=== PATIENT | male | born 1945 | race Caucasian/White ===

== ENCOUNTER → 2021-04-04 09:15 | Outpatient (CLI) | payer MEDICARE, OTHER, SELFPAY ==
[2021-04-04 19:52] LABS: Bacteria Urine None Seen
[2021-04-04 20:00] LABS: Appearance Urine UA CLEAR; Bilirubin Urine UA NEGATIVE (NEGATIVE); Color Urine UA YELLOW; Glucose Urine UA NEGATIVE (Negative); Ketones Urine UA NEGATIVE (NEGATIVE); Leukocyte Esterase Urine UA NEGATIVE (NEGATIVE); Nitrite Urine UA NEGATIVE (Negative); Occult Blood Urine UA NEGATIVE (Negative); Protein Urine UA 2+ (Negative); Urobilinogen Urine UA 0.2 E.U./dL (0.2)
[2021-04-04 20:10] LABS: Add Manual Diff / Slide Review NO; Basophils Absolute Auto 0 /uL (0-100); Basophils Percent Auto 0.2 % (0-2); Eosinophils Absolute Auto 200 /uL (0-450); Eosinophils Percent Auto 2.9 % (2-4); Hematocrit 36.7 % (41-53); Hemoglobin 12.1 g/dL (13.5-17.5); Lymphocytes Absolute Auto 1500 /uL (1100-4500); Lymphocytes Percent Auto 24.2 % (25-40); Mean Corpuscular Hemoglobin 28.7 PG (26-34); Mean Corpuscular Volume 86.9 fL (80-100); Monocytes Absolute Auto 500 /uL (0-900); Monocytes Percent Auto 8.6 % (3-14); Neutrophils Absolute Auto 3900 /uL (1500-7000); Neutrophils Percent Auto 64.1 % (50-75); Platelet Count 251 X10^3/uL (150-400); Red Blood Cell Count 4.22 X10^6/uL (4.5-5.9); Red Cell Distribution Width 15.4 % (11.6-14.8)
[2021-04-04 20:31] LABS: Culture Indicated Urine Cult Not Indicated
[2021-04-04 20:32] LABS: Hyaline Casts Urine 1-5/LPF; RBC Urine 1-5/HPF (0-5/HPF); WBC Urine 1-5/HPF (0-5/HPF)
[2021-04-04 20:44] LABS: Albumin 3.6 g/dL (3.5-5.0); BUN Creatinine Ratio 15.6 (6-22); Blood Urea Nitrogen 36 mg/dL (9-20); C-Reactive Protein Quant 0.9 mg/dL (<1.0); Calcium 9.9 mg/dL (8.4-10.2); Carbon Dioxide 26 mmol/L (22-32); Chloride 108 mmol/L (98-107); Cholesterol 212 mg/dL (140-199); Creatinine Urine Random 97.1 mg/dL; Erythrocyte Sedimentation Rate 40 MM/HR (0-15); Estimated Glomerular Filt Rate 27.5 mL/min (>60); Glucose 103 mg/dL (80-110); HDL Cholesterol 39 mg/dL (40-60); HEMOLYSIS < 15 (0-50); LDL Cholesterol Calculated 129 mg/dL (<100); Magnesium 2.3 mg/dL (1.6-2.3); Phosphorous 3.3 mg/dL (2.3-3.7); Potassium 3.9 mmol/L (3.4-5.1); Protein (Total) Urine Random 90 mg/dL (0-12); Protein Creatinine Ratio Urine 0.92 GRAM/24H; Sodium 141 mmol/L (137-145); Triglycerides 218 mg/dL (35-150)
[2021-04-06 06:09] LABS: Parathyroid Hormone Int 118 pg/mL (15-65)
== END ==
PROVIDERS: PCP Family Medicine
DX: N18.4 Chronic kidney disease, stage 4 (severe)
CPT/HCPCS: 80061; 80069; 81001; 82570; 83735; 83970; 84156; 85025; 85651; 86140

== ENCOUNTER 2024-12-16 21:14 | Emergency (ER) | payer MEDICARE, OTHER, SELFPAY ==
[2024-12-16] VITALS (7 sets, daily range): BP systolic 126–152; BP diastolic 63–76; PULSE 72–76; RESP 17–30; TEMP 36.1; O2SAT 90–93; BMI 37.3
--- NOTE | 2024-12-16 21:28 | EKG_ITS ---
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
[2024-12-16 22:17] LABS: Add Manual Diff / Slide Review NO; Basophils Absolute Auto 0 /uL (0-100); Basophils Percent Auto 0.2 % (0-2); Eosinophils Absolute Auto 200 /uL (0-450); Eosinophils Percent Auto 1.9 % (2-4); Hematocrit 21.5 % (41-53); Hemoglobin 7.2 g/dL (13.5-17.5); Lymphocytes Absolute Auto 600 /uL (1100-4500); Mean Corpuscular HGB Conc 33.4 % (30-36); Mean Corpuscular Hemoglobin 31.8 PG (26-34); Mean Corpuscular Volume 95.3 fL (80-100); Monocytes Absolute Auto 800 /uL (0-900); Monocytes Percent Auto 6.7 % (3-14); Neutrophils Absolute Auto 9700 /uL (1500-7000); Neutrophils Percent Auto 86.2 % (50-75); Platelet Count 123 X10^3/uL (150-400); Red Blood Cell Count 2.26 X10^6/uL (4.5-5.9); Red Cell Distribution Width 16.7 % (11.6-14.8); White Blood Cell Count 11.3 X10^3/uL (4.5-11.0)
[2024-12-16 22:25] LABS: Prothrombin Time 11.6 SECONDS (9.4-12.5)
[2024-12-16 22:27] LABS: PTT Partial Thromboplastin Tim 20 SECONDS (25.1-36.5)
[2024-12-16 22:29] LABS: Alanine Aminotransferase 62 IU/L (<50); Albumin 3.3 g/dL (3.5-5.0); Albumin Globulin Ratio 1.3 (1.0-2.8); Alkaline Phosphatase 93 U/L (38-126); Aspartate Aminotransferase 45 IU/L (17-59); BUN Creatinine Ratio 10.6 (6-22); Bilirubin Total 0.8 mg/dL (0.2-1.3); Blood Urea Nitrogen 104 mg/dL (9-20); Calcium 9.3 mg/dL (8.4-10.2); Carbon Dioxide 30 mmol/L (22-32); Chloride 98 mmol/L (98-107); Estimated Glomerular Filt Rate 5 mL/min (>60); Globulin 2.6 g/dL (1.7-4.1); Glucose 130 mg/dL (80-110); HEMOLYSIS 21 (0-50); Potassium 4.8 mmol/L (3.4-5.1); Sodium 137 mmol/L (137-145); Total Protein 5.9 g/dL (6.3-8.2)
[2024-12-17] VITALS (28 sets, daily range): BP systolic 131–165; BP diastolic 70–96; PULSE 72–107; RESP 18–38; TEMP 36.6–36.8; O2SAT 91–99
--- NOTE | 2024-12-17 03:20 | ED_ITS ---
HPI - Recheck/Abnormal Lab/Rx <Kandice Alvarez, DO - Last Filed: 12/18/24 02:41> General Chief Complaint: Recheck/Abnormal Lab/Rx Stated Complaint: abnormal labs Time Seen by Provider: 12/16/24 23:33 Source: EMS Mode of arrival: EMS Limitations: no limitations History of Present Illness HPI narrative: 79-year-old male stage IV cancer lung cancer diagnosed in July, end-stage renal disease nightly home peritoneal dialysis last dialysis was 12/15/2024 patient was brought over from [facility] for anemia with goal of transfusion. Patient states he had lab draw showed his hemoglobin was low I also spoke with his who states he had a hemoglobin of 6.5 last check was 8 and they were contacted by the oncologist and told to come for blood transfusion. Patient has had blood transfusion in the past. Patient's states he had his dialysis he on the , they do not have any of his supplies. Patient not complaining of any acute chest pain, shortness of breath, significant swelling, lightheadedness or passing out. No known drug allergies. Related Data Home Medications Medication Instructions Recorded Confirmed Benadryl 12/16/24 Mucinex 12/16/24 Tums 12/16/24 Tylenol 12/16/24 Vitamin D3 12/16/24 adagrasib 200 mg tablet (Krazati) 600 mg PO BID 12/16/24 12/16/24 amlodipine 10 mg tablet 5 mg PO BEDTIME 12/16/24 12/16/24 apixaban 2.5 mg tablet (Eliquis) 2.5 mg PO BID 12/16/24 12/16/24 azelastine 137 mcg (0.1 %) nasal 2 spray intranasal BID 12/16/24 12/16/24 spray carvedilol 12.5 mg tablet 12.5 mg PO BID 12/16/24 12/16/24 dexamethasone 1 mg tablet 1 mg PO BID 12/16/24 12/16/24 docusate sodium 100 mg capsule 100 mg PO BID PRN Constipation 12/16/24 12/16/24 fluticasone propionate 50 2 spray intranasal DAILY 12/16/24 12/16/24 mcg/actuation nasal spray,suspension hydrocortisone 1 % topical cream 1 applic topical BID PRN Itching 12/16/24 12/16/24 levothyroxine 25 mcg tablet 25 mcg PO DAILY 12/16/24 12/16/24 loratadine 10 mg tablet (Claritin) 10 mg PO BID 12/16/24 12/16/24 methylprednisolone 4 mg tablet 4 mg PO DAILY 12/16/24 12/16/24 ondansetron 4 mg disintegrating 4 mg PO Q6H PRN Nausea 12/16/24 12/16/24 tablet oxycodone-acetaminophen 5 mg-325 1 tab PO Q4-6H PRN Pain, Severe 12/16/24 12/16/24 mg tablet polyethylene glycol 3350 17 17 g PO DAILY 12/16/24 12/16/24 gram/dose oral powder (Miralax) prochlorperazine maleate 10 mg 10 mg PO DAILY 12/16/24 12/16/24 tablet (Compazine) sevelamer carbonate 0.8 gram oral g PO 12/16/24 powder packet torsemide 20 mg tablet 20 mg PO DAILY 12/16/24 12/16/24 vitamins A,C,A-ulfa-viipft 2,148 tab 12/16/24 mcg-113 mg-45 mg-17.4 mg tablet (PreserVision AREDS) Allergies Allergy/AdvReac Type Severity Reaction Status Date / Time No Known Drug Allergies Allergy Verified 12/16/24 21:38 Review of Systems <Kandice Alvarez DO - Last Filed: 12/18/24 02:41> Review of Systems ROS Unobtainable: All systems reviewed & are unremarkable except as noted in HPI and below Exam <Kandice Alvarez DO - Last Filed: 12/18/24 02:41> Narrative Exam Narrative: GENERAL: Alert and oriented x three, male in mild distress, pale. HEENT: Head normocephalic, atraumatic, EOMI, pupils reactive, face symmetric, moist mucous membranes NECK: Supple, full range of motion CARDIOVASCULAR: Regular rate and rhythm without murmurs, rubs or gallops. RESPIRATORY: Breath sounds equal bilaterally, no wheezes rales or rhonchi. ABDOMEN: Soft, nontender. Normoactive bowel sounds all 4 quadrants. No guarding or rebound, rigidity, no mass : No CVA tenderness EXTREMITIES: Normal range of motion, no clubbing or edema. Neurovascularly intact NEUROLOGICAL: Cranial nerves II through XII grossly intact. Moving all extremities SKIN: Warm, dry, no petechiae, no rashes or lesions. Initial Vital Signs Initial Vital Signs: Vital Signs Temperature 96.9 F L 12/16/24 21:21 Pulse Rate 72 12/16/24 21:21 Respiratory Rate 20 12/16/24 21:21 Blood Pressure 152/68 H 12/16/24 21:21 Pulse Oximetry 93 12/16/24 21:21 Oxygen Delivery Method Room Air 12/16/24 21:21 <Maritza Felix, DO - Last Filed: 12/17/24 18:42> Initial Vital Signs Initial Vital Signs: Vital Signs Temperature 96.9 F L 12/16/24 21:21 Pulse Rate 72 12/16/24 21:21 Respiratory Rate 20 12/16/24 21:21 Blood Pressure 152/68 H 12/16/24 21:21 Pulse Oximetry 93 12/16/24 21:21 Oxygen Delivery Method Room Air 12/16/24 21:21 Course <Kandice Alvarez, DO - Last Filed: 12/18/24 02:41> Orders Ordered: Discontinued Medications Acetaminophen (Acetaminophen 325 Mg Tablet) 650 mg PO NOW ONE Stop: 12/17/24 06:10 Last Admin: 12/17/24 06:17 Dose: 650 mg Documented By: AB Carvedilol (Carvedilol 12.5 Mg Tablet) 12.5 mg PO NOW ONE Stop: 12/17/24 09:21 Last Admin: 12/17/24 09:37 Dose: 12.5 mg Documented By: MINOO Dexamethasone (Dexamethasone 1 Mg Tablet) 1 mg PO NOW ONE Stop: 12/17/24 05:29 Last Admin: 12/17/24 05:44 Dose: 1 mg Documented By: AB Diphenhydramine HCl (Diphenhydramine 25 Mg Tablet) 50 mg PO NOW ONE Stop: 12/17/24 06:10 Last Admin: 12/17/24 06:17 Dose: 50 mg Documented By: AB Ondansetron HCl (Ondansetron 4 Mg/2 Ml Inj) 4 mg IV NOW PRN PRN Reason: Nausea And Vomiting Ondansetron HCl (Ondansetron 4 Mg Odt) 4 mg SL NOW PRN PRN Reason: Nausea And Vomiting Last Admin: 12/17/24 05:44 Dose: 4 mg Documented By: Torsemide (Torsemide 10 Mg Tablet) 20 mg PO NOW ONE Stop: 12/17/24 06:12 Last Admin: 12/17/24 06:38 Dose: 20 mg Documented By: Vital Signs Vital signs: Vital Signs - 8 hr 12/17/24 01:30 12/17/24 01:30 12/17/24 02:00 Temperature Pulse Rate 86 Respiratory Rate 25 H Blood Pressure 139/72 145/75 H Pulse Oximetry 94 Oxygen Delivery Method 12/17/24 02:00 12/17/24 02:30 12/17/24 02:30 Temperature Pulse Rate 74 74 Respiratory Rate 24 20 Blood Pressure 147/72 H Pulse Oximetry 99 Oxygen Delivery Method Room Air 12/17/24 03:00 12/17/24 03:31 12/17/24 04:00 Temperature Pulse Rate 75 81 Respiratory Rate 18 Blood Pressure 132/73 Pulse Oximetry 91 Oxygen Delivery Method Room Air 12/17/24 04:00 12/17/24 04:30 12/17/24 04:48 Temperature 98.3 F Pulse Rate 73 73 74 Respiratory Rate 22 19 18 Blood Pressure 132/73 Pulse Oximetry 94 94 Oxygen Delivery Method 12/17/24 05:00 12/17/24 05:06 12/17/24 05:06 Temperature Pulse Rate 72 73 Respiratory Rate 20 21 Blood Pressure 141/71 H Pulse Oximetry 93 94 Oxygen Delivery Method Room Air 12/17/24 05:07 12/17/24 05:30 12/17/24 05:30 Temperature 97.9 F Pulse Rate 73 74 Respiratory Rate 20 22 Blood Pressure 141/71 H 155/76 H Pulse Oximetry 92 Oxygen Delivery Method Room Air 12/17/24 06:00 12/17/24 06:00 12/17/24 06:24 Temperature Pulse Rate 75 Respiratory Rate 23 Blood Pressure 143/96 H 156/78 H Pulse Oximetry 95 Oxygen Delivery Method 12/17/24 06:24 12/17/24 06:30 12/17/24 06:30 Temperature Pulse Rate 75 74 Respiratory Rate 19 Blood Pressure 149/77 H Pulse Oximetry 92 94 Oxygen Delivery Method 12/17/24 07:00 12/17/24 07:00 12/17/24 07:30 Temperature Pulse Rate 76 75 Respiratory Rate Blood Pressure 134/75 Pulse Oximetry 93 92 Oxygen Delivery Method Room Air 12/17/24 07:31 12/17/24 07:31 12/17/24 07:59 Temperature Pulse Rate 75 Respiratory Rate Blood Pressure 149/70 H 165/80 H Pulse Oximetry 93 Oxygen Delivery Method 12/17/24 07:59 12/17/24 08:00 12/17/24 08:00 Temperature Pulse Rate 82 76 Respiratory Rate Blood Pressure 156/83 H Pulse Oximetry 92 92 Oxygen Delivery Method Room Air Room Air <Maritza Felix, DO - Last Filed: 12/17/24 18:42> Orders Ordered: Discontinued Medications Acetaminophen (Acetaminophen 325 Mg Tablet) 650 mg PO NOW ONE Stop: 12/17/24 06:10 Last Admin: 12/17/24 06:17 Dose: 650 mg Documented By: AB Carvedilol (Carvedilol 12.5 Mg Tablet) 12.5 mg PO NOW ONE Stop: 12/17/24 09:21 Last Admin: 12/17/24 09:37 Dose: 12.5 mg Documented By: MINOO Dexamethasone (Dexamethasone 1 Mg Tablet) 1 mg PO NOW ONE Stop: 12/17/24 05:29 Last Admin: 12/17/24 05:44 Dose: 1 mg Documented By: AB Diphenhydramine HCl (Diphenhydramine 25 Mg Tablet) 50 mg PO NOW ONE Stop: 12/17/24 06:10 Last Admin: 12/17/24 06:17 Dose: 50 mg Documented By: Ondansetron HCl (Ondansetron 4 Mg/2 Ml Inj) 4 mg IV NOW PRN PRN Reason: Nausea And Vomiting Ondansetron HCl (Ondansetron 4 Mg Odt) 4 mg SL NOW PRN PRN Reason: Nausea And Vomiting Last Admin: 12/17/24 05:44 Dose: 4 mg Documented By: AB Torsemide (Torsemide 10 Mg Tablet) 20 mg PO NOW ONE Stop: 12/17/24 06:12 Last Admin: 12/17/24 06:38 Dose: 20 mg Documented By: AB Vital Signs Vital signs: Vital Signs - 8 hr 12/17/24 01:30 12/17/24 01:30 12/17/24 02:00 Temperature Pulse Rate 86 Respiratory Rate 25 H Blood Pressure 139/72 145/75 H Pulse Oximetry 94 Oxygen Delivery Method 12/17/24 02:00 12/17/24 02:30 12/17/24 02:30 Temperature Pulse Rate 74 74 Respiratory Rate 24 20 Blood Pressure 147/72 H Pulse Oximetry 99 Oxygen Delivery Method Room Air 12/17/24 03:00 12/17/24 03:31 12/17/24 04:00 Temperature Pulse Rate 75 81 Respiratory Rate 18 Blood Pressure 132/73 Pulse Oximetry 91 Oxygen Delivery Method Room Air 12/17/24 04:00 12/17/24 04:30 12/17/24 04:48 Temperature 98.3 F Pulse Rate 73 73 74 Respiratory Rate 22 19 18 Blood Pressure 132/73 Pulse Oximetry 94 94 Oxygen Delivery Method 12/17/24 05:00 12/17/24 05:06 12/17/24 05:06 Temperature Pulse Rate 72 73 Respiratory Rate 20 21 Blood Pressure 141/71 H Pulse Oximetry 93 94 Oxygen Delivery Method Room Air 12/17/24 05:07 12/17/24 05:30 12/17/24 05:30 Temperature 97.9 F Pulse Rate 73 74 Respiratory Rate 20 22 Blood Pressure 141/71 H 155/76 H Pulse Oximetry 92 Oxygen Delivery Method Room Air 12/17/24 06:00 12/17/24 06:00 12/17/24 06:24 Temperature Pulse Rate 75 Respiratory Rate 23 Blood Pressure 143/96 H 156/78 H Pulse Oximetry 95 Oxygen Delivery Method 12/17/24 06:24 12/17/24 06:30 12/17/24 06:30 Temperature Pulse Rate 75 74 Respiratory Rate 19 Blood Pressure 149/77 H Pulse Oximetry 92 94 Oxygen Delivery Method 12/17/24 07:00 12/17/24 07:00 12/17/24 07:30 Temperature Pulse Rate 76 75 Respiratory Rate Blood Pressure 134/75 Pulse Oximetry 93 92 Oxygen Delivery Method Room Air 12/17/24 07:31 12/17/24 07:31 12/17/24 07:59 Temperature Pulse Rate 75 Respiratory Rate Blood Pressure 149/70 H 165/80 H Pulse Oximetry 93 Oxygen Delivery Method 12/17/24 07:59 12/17/24 08:00 12/17/24 08:00 Temperature Pulse Rate 82 76 Respiratory Rate Blood Pressure 156/83 H Pulse Oximetry 92 92 Oxygen Delivery Method Room Air Room Air MDM - Recheck/Abnormal Lab/Rx <Kandice Alvarez DO - Last Filed: 12/18/24 02:41> Lab Data 12/16/24 22:00 12/16/24 22:00 Labs: Lab Results 12/16/24 12/17/24 Range/Units 22:00 03:30 WBC 11.3 H (4.5-11.0) X10^3/uL RBC 2.26 L (4.5-5.9) X10^6/uL Hgb 7.2 L (13.5-17.5) g/dL Hct 21.5 L (41-53) % MCV 95.3 (80-100) fL MCH 31.8 (26-34) PG MCHC 33.4 (30-36) % RDW 16.7 H (11.6-14.8) % Plt Count 123 L (150-400) X10^3/uL Neut % (Auto) 86.2 H (50-75) % Lymph % (Auto) 5.0 L (25-40) % [place] % (Auto) 6.7 (3-14) % Eos % (Auto) 1.9 L (2-4) % Baso % (Auto) 0.2 (0-2) % Neut # (Auto) 9700 H (3607-1721) /uL Lymph # (Auto) 600 L (1142-4250) /uL [place] # (Auto) 800 (0-900) /uL Eos # (Auto) 200 (0-450) /uL Baso # (Auto) 0 (0-100) /uL PT 11.6 (9.4-12.5) SECONDS INR 1.0 (0.9-1.3) APTT 20 L (25.1-36.5) SECONDS Sodium 137 (137-145) mmol/L Potassium 4.8 (3.4-5.1) mmol/L Chloride 98 (98-107) mmol/L Carbon Dioxide 30 (22-32) mmol/L BUN 104 H (9-20) mg/dL Creatinine 9.83 H* (0.66-1.25) mg/dL Estimated GFR 5 L (>60) mL/min BUN/Creatinine Ratio 10.6 (6-22) Glucose 130 H (80-110) mg/dL Calcium 9.3 (8.4-10.2) mg/dL Total Bilirubin 0.8 (0.2-1.3) mg/dL AST 45 (17-59) IU/L ALT 62 H (<50) IU/L Alkaline Phosphatase 93 (38-126) U/L Total Protein 5.9 L (6.3-8.2) g/dL Albumin 3.3 L (3.5-5.0) g/dL Globulin 2.6 (1.7-4.1) g/dL Albumin/Globulin Ratio 1.3 (1.0-2.8) Ur Bilirubin Confirm Negative (Negative) Urine RBC 0-1/hpf (0-5/HPF) Urine WBC None seen (0-5/HPF) Ur Squamous Epith Cells 0-1 /hpf (0-5/HPF) Urine Bacteria None seen (None) Ur Culture Indicated? Cult not indicated Vol Urine Centrifuged 10ml (spun) Blood Type A Positive Antibody Screen Negative Crossmatch See Detail Urine Dip Bedside Urine Glucose Negative Bedside Urine Bilirubin + 1 Bedside Urine Ketone - Negative Urine Specific [place] 1.010 Bedside Urine Occult Blood +++ Bedside Urine pH 7.0 Bedside Urine Protein + 30 Bedside Urine Urobilinogen - Negative Bedside Urine Nitrite - Negative Bedside Urine Leukocytes - Negative Esterase ECG Data Attestation: I personally reviewed and interpreted this ECG as follows: Prior ECG tracings: not available for review Interpretation: Sinus rhythm rate of 74 [place] 188 QRS of 96 QTC of 457. No acute ST changes. No priors for comparison. MDM Narrative Medical decision making narrative: Labs show white count 11.3 hemoglobin of 7.2 platelets of 123 patient does not have any priors for comparison accept for 2020 when hemoglobin was 12.1 patient's creatinine is 9.83 sodium is 137 potassium 4.8 chloride 98 CO2 of 30 BUN of 104 glucose of 130. Calcium is 9.3 ALT 62 but AST is 45 with a normal bilirubin and alk-phos. INR of 1. Patient's vitals patient has not had any persistent tachycardia or hypotension. Discussed blood transfusion patient meets criteria with a hemoglobin of 7.2 he does not have any tachycardia or hypotension he is a peritoneal dialysis, Last dialysis was 12/15/24 has not have dialysis in last 24 hours. He is high-risk for fluid overload. He was transferred here from [facility] by air ambulance but we do not have Nephrology available. Spoke with patient and his he was full code. We will reach out to his oncologist to see if he was tolerated this well in the past discussed with the patient and both he does meet criteria for blood would likely benefit but we have little bit of time to sort out the safest way for him to receive this. [id number] Fuentes patient's oncologist through [facility] he is familiar with the patient does not see him a lot [id number] [place] has had 1 prior blood transfusion Saturday without any difficulties. He states patient was hemoglobin of 6 he does recommend that he receives 1 unit packed red cells we discussed risks versus benefits if patient becomes fluid overloaded we do not have capabilities to dialyze the patient he does not understand this and feel patient would likely tolerate this okay and that we did discuss risks with patient and their family. [id number] I spoke with the patient and his discussed patient is high-risk for fluid overload he does make a little bit of urine but has not had peritoneal dialysis tonight and could ultimately end up intubated from fluid overload but they are agreeable to transfusion at this time states he has had 1 prior transfusion at Saturday without issue. Both patient and are aware that it is very difficult to transfer currently sometimes taking 48+ hours. Patient receiving blood complaining of his usual joint pain give a dose of Tylenol. Patient normally takes Benadryl daily as well as loratadine so was given a dose of Benadryl orally. We will also give patient's home torsemide dose. Signed out to Dr. Felix while receiving blood. Dr. Felix-patient signed out to me by Dr. Alvarez. Patient chronic kidney disease on peritoneal dialysis has not had peritoneal dialysis for at least 24 hours, creatinine today 9.8, BUN 1 0 Previously on November 11 creatinine 7.86 BUN 68 He is currently receiving 1 unit packed red blood cells still makes urine. Seems to be a confused [id number] DR. Garcia, nephrology at updated on patient's test results symptoms states that patient can go home and resume peritoneal dialysis no changes need to be made Discussion with and patient and daughter at bedside goals of care pulsed form. For now he continues to be full code getting help and other devices and things home. <Maritza Felix, DO - Last Filed: 12/17/24 18:42> Lab Data Labs: Lab Results 12/16/24 12/17/24 Range/Units 22:00 03:30 WBC 11.3 H (4.5-11.0) X10^3/uL RBC 2.26 L (4.5-5.9) X10^6/uL Hgb 7.2 L (13.5-17.5) g/dL Hct 21.5 L (41-53) % MCV 95.3 (80-100) fL MCH 31.8 (26-34) PG MCHC 33.4 (30-36) % RDW 16.7 H (11.6-14.8) % Plt Count 123 L (150-400) X10^3/uL Neut % (Auto) 86.2 H (50-75) % Lymph % (Auto) 5.0 L (25-40) % [place] % (Auto) 6.7 (3-14) % Eos % (Auto) 1.9 L (2-4) % Baso % (Auto) 0.2 (0-2) % Neut # (Auto) 9700 H (5111-9097) /uL Lymph # (Auto) 600 L (5650-2713) /uL [place] # (Auto) 800 (0-900) /uL Eos # (Auto) 200 (0-450) /uL Baso # (Auto) 0 (0-100) /uL PT 11.6 (9.4-12.5) SECONDS INR 1.0 (0.9-1.3) APTT 20 L (25.1-36.5) SECONDS Sodium 137 (137-145) mmol/L Potassium 4.8 (3.4-5.1) mmol/L Chloride 98 (98-107) mmol/L Carbon Dioxide 30 (22-32) mmol/L BUN 104 H (9-20) mg/dL Creatinine 9.83 H* (0.66-1.25) mg/dL Estimated GFR 5 L (>60) mL/min BUN/Creatinine Ratio 10.6 (6-22) Glucose 130 H (80-110) mg/dL Calcium 9.3 (8.4-10.2) mg/dL Total Bilirubin 0.8 (0.2-1.3) mg/dL AST 45 (17-59) IU/L ALT 62 H (<50) IU/L Alkaline Phosphatase 93 (38-126) U/L Total Protein 5.9 L (6.3-8.2) g/dL Albumin 3.3 L (3.5-5.0) g/dL Globulin 2.6 (1.7-4.1) g/dL Albumin/Globulin Ratio 1.3 (1.0-2.8) Ur Bilirubin Confirm Negative (Negative) Urine RBC 0-1/hpf (0-5/HPF) Urine WBC None seen (0-5/HPF) Ur Squamous Epith Cells 0-1 /hpf (0-5/HPF) Urine Bacteria None seen (None) Ur Culture Indicated? Cult not indicated Vol Urine Centrifuged 10ml (spun) Blood Type A Positive Antibody Screen Negative Crossmatch See Detail Urine Dip Bedside Urine Glucose Negative Bedside Urine Bilirubin + 1 Bedside Urine Ketone - Negative Urine Specific [place] 1.010 Bedside Urine Occult Blood +++ Bedside Urine pH 7.0 Bedside Urine Protein + 30 Bedside Urine Urobilinogen - Negative Bedside Urine Nitrite - Negative Bedside Urine Leukocytes - Negative Esterase MDM Narrative Medical decision making narrative: Labs show white count 11.3 hemoglobin of 7.2 platelets of 123 patient does not have any priors for comparison accept for 2020 when hemoglobin was 12.1 patient's creatinine is 9.83 sodium is 137 potassium 4.8 chloride 98 CO2 of 30 BUN of 104 glucose of 130. Calcium is 9.3 ALT 62 but AST is 45 with a normal bilirubin and alk-phos. INR of 1. Patient's vitals patient has not had any persistent tachycardia or hypotension. Discussed blood transfusion patient meets criteria with a hemoglobin of 7.2 he does not have any tachycardia or hypotension he is a peritoneal dialysis, Last dialysis was 12/15/24 has not have dialysis in last 24 hours. He is high-risk for fluid overload. He was transferred here from [facility] by air ambulance but we do not have Nephrology available. Spoke with patient and his he was full code. We will reach out to his oncologist to see if he was tolerated this well in the past discussed with the patient and both he does meet criteria for blood would likely benefit but we have little bit of time to sort out the safest way for him to receive this. [id number] Fuentes patient's oncologist through [facility] he is familiar with the patient does not see him a lot [id number] [place] 1 prior blood transfusion [place] without any difficulties. He states patient was hemoglobin of 6 he does recommend that he receives 1 unit packed red cells we discussed risks versus benefits if patient becomes fluid overloaded we do not have capabilities to dialyze the patient he does not understand this and feel patient would likely tolerate this okay and that we did discuss risks with patient and their family. [id number] I spoke with the patient and his discussed patient is high-risk for fluid overload he does make a little bit of urine but has not had peritoneal dialysis tonight and could ultimately end up intubated from fluid overload but they are agreeable to transfusion at this time states he has had 1 prior transfusion at [place] without issue. Both patient and are aware that it is very difficult to transfer currently sometimes taking 48+ hours. Patient receiving blood complaining of his usual joint pain give a dose of Tylenol. Patient normally takes Benadryl daily as well as loratadine so was given a dose of Benadryl orally. We will also give patient's home torsemide dose. Signed out to Dr. Felix. Dr. Felix-patient signed out to me by Dr. Alvarez. Patient chronic kidney disease on peritoneal dialysis has not had peritoneal dialysis for at least 24 hours, creatinine today 9.8, BUN 1 0 Previously on November 11 creatinine 7.86 BUN 68 He is currently receiving 1 unit packed red blood cells still makes urine. Seems to be a confused [id number] DR. Garcia, nephrology at updated on patient's test results symptoms states that patient can go home and resume peritoneal dialysis no changes need to be made Discussion with and patient and daughter at bedside goals of care pulsed form. For now he continues to be full code getting help and other devices and things home. Discharge Plan Departure Patient Disposition: Home Clinical Impression: Anemia, Requires peritoneal dialysis Activity Restrictions/Additional Instructions: *You have been diagnosed with anemia *What to do: At this time please resume your peritoneal dialysis start as soon as you get home. Follow-up with Oncology, discuss if eliquis is needed while anemic *Continue to take medications as directed *Follow up with your primary care provider in 2-3 days or call [phone] *Return to ER if you should have chest pain shortness of breath weakness confusion or any new, worsening or concerning symptoms Prescriptions: No Action torsemide 20 mg Tablet 20 mg PO DAILY dexamethasone 1 mg tablet 1 mg PO BID Rx Instructions: 3 pm and 3 am amlodipine 10 mg Tablet 5 mg PO BEDTIME Eliquis 2.5 mg tablet 2.5 mg PO BID prochlorperazine maleate [Compazine] 10 mg Tablet 10 mg PO DAILY levothyroxine 25 mcg Tablet 25 mcg PO DAILY oxycodone-acetaminophen 5-325 mg Tablet 1 tab PO Q4-6H PRN (Reason: Pain, Severe) sevelamer carbonate 0.8 gram powder in packet PO Krazati 200 mg tablet 600 mg PO BID hydrocortisone 1 % Cream 1 applic TOPICAL BID PRN (Reason: Itching) azelastine 137 mcg (0.1 %) [place],Non-Aerosol 2 spray INTRANASAL BID Rx Instructions: administer into each nostril fluticasone propionate 50 mcg/actuation [place],Suspension 2 spray INTRANASAL DAILY Rx Instructions: administer into each nostril ondansetron 4 mg Tablet,Disintegrating 4 mg PO Q6H PRN (Reason: Nausea) Mucinex methylprednisolone [Methylprednisone] 4 mg Tablet 4 mg PO DAILY docusate sodium 100 mg Capsule 100 mg PO BID PRN (Reason: Constipation) polyethylene glycol 3350 [Miralax] 17 gram/dose Powder 17 g PO DAILY PreserVision AREDS 2,148 mcg-113 mg-45 mg-17.4mg Tablet Vitamin D3 Benadryl Tums Tylenol carvedilol 12.5 mg Tablet 12.5 mg PO BID Rx Instructions: must administer with a meal/food loratadine [Claritin] 10 mg Tablet 10 mg PO BID Referrals: Rj Landa MD [Primary Care Provider] - Stand Alone Forms: Patient Portal/API/Survey
[2024-12-17 04:00] LABS: Bacteria Urine None Seen; Culture Indicated Urine Cult Not Indicated; Ictotest Urine Negative (Negative); RBC Urine 0-1/HPF (0-5/HPF); Squamous Epithelial Cell Urine 0-1 /HPF (0-5/HPF); Urine Volume 10mL (spun); WBC Urine None Seen (0-5/HPF)
--- NOTE | 2024-12-17 05:14 | PC.NURSE ---
Transfusion started and pt tolerating well.
[2024-12-17] MEDS: dexAMETHasone 1 MG TABLET PO (05:44)
[2024-12-17] MEDS: ONDANSETRON 4 MG ODT SL (05:44)
[2024-12-17] MEDS: diphenhydrAMINE 25 MG TABLET 50 MG PO (06:17)
[2024-12-17] MEDS: ACETAMINOPHEN 325 MG TABLET 650 MG PO (06:17)
[2024-12-17] MEDS: TORSEMIDE 10 MG TABLET 20 MG PO (06:38)
--- NOTE | 2024-12-17 08:30 | PC.NURSE ---
Pt having difficulty keeping his right arm striaght for IV blood transfusion. I educated patient multiple times regarding keeping his arm straight. Pt expresses understanding but continues to bend his arm for comfort. I notified provider of increased transfusion time. Pt requires frequent repositioning and straightening his arm to continue infusion.
--- NOTE | 2024-12-17 08:45 | PC.NURSE ---
Pt in bed anxious, tearful, stating he needs to leave and asks how much longer is this going to take? I want to go home. I updated pt that his blood transfusion is nearing completion. Pt's spouse Michelle (teofilo) on the cell phone in room on speakerphone talking to pt. I updated Michelle and she plans to arrive at 1000 [place] to [place] the [place] ferry [place]. Michelle concerned pt did not take some of his daily medications including levothyroxine, eliquis, carvedilol. I notified Dr. Felix of medications.
[2024-12-17] MEDS: carvediloL 12.5 MG TABLET PO (09:37)
== END 2024-12-17 10:18 | disposition home or self-care (01) ==
PROVIDERS: Emergency Medicine; Emergency Provider Emergency Medicine; PCP Family Medicine
DX: D64.9 Anemia, unspecified (principal); Z79.01 Long term (current) use of anticoagulants; R53.1 Weakness; I12.0 Hypertensive chronic kidney disease with stage 5 chronic kidney disease or end stage renal disease; N18.6 End stage renal disease; Z99.2 Dependence on renal dialysis
CPT/HCPCS: 36415; 36430; 80053; 81003; 81015; 85025; 85610; 85730; 86850; 86900; 86901; 87086; 93005; 93010; 99285; P9016